=== PATIENT | female | born 1975 | race Caucasian/White ===

== ENCOUNTER 2018-07-23 10:09 | Emergency (ER) | payer BC ==
[~2018-07-23] VITALS: Ht 167.6 cm; Wt 74.8 kg
[~2018-07-23 10:09] MED LIST: ACET325T9 PO; ALPR0.5T PO; CARV6.25 PO; CLON0.1T PO; CLON1PAT TD; LOSA100T2 PO; LOSA25TA PO; LOSA50TA86 PO; TRAZ-120 PO
--- NOTE | 2018-07-23 11:25 | RAD ---
EXAM: Right shoulder, 3 views; right elbow, 3 views. HISTORY: Pain. COMPARISON: None. FINDINGS: Right shoulder: 3 views of the right shoulder obtained. There is no fracture, dislocation or subluxation. Right elbow: 3 views of the right elbow are obtained. There is no fracture, dislocation or subluxation. There is no elbow effusion. IMPRESSION: No acute osseous finding. Electronically signed by: Christina Berg MD (07/23/2018 11:22 AM) [facility]
--- NOTE | 2018-07-23 12:45 | RAD ---
EXAM: Head CT without contrast. HISTORY: Upper extremity numbness. TECHNIQUE: Computed tomographic images of the head were obtained without contrast. *One or more of the following individualized dose reduction techniques were utilized for this examination: 1. Automated exposure control. 2. Adjustment of the mA and/or kV according to patient size. 3. Use of iterative reconstruction technique. COMPARISON: 10/03/2013. FINDINGS: There is no acute or subacute extra-axial or intraparenchymal hemorrhage. There is no mass effect or midline shift. There is no hydrocephalus. The ngo-white matter differentiation pattern is intact. There is minimal posterior left ethmoid sinus mucosal thickening. The mastoid air cells are clear. No calvarial lesion is seen. IMPRESSION: No acute intracranial findings. Note is made that MRI is more sensitive for acute infarction. Electronically signed by: Christina Berg MD (07/23/2018 12:42 PM) [facility]
[2018-07-23 13:52] VITALS: BP 121/83
--- NOTE | 2018-07-23 14:21 | RAD ---
Right upper extremity venous Doppler July 23, 2018 INDICATION: Right upper extremity weakness and numbness. COMPARISON: None available TECHNIQUE: Sonographic evaluation of the right upper extremity venous system was performed with grayscale and color Doppler. FINDINGS: Right IJ, right cephalic vein, axillary vein, basilic vein, brachial vein, radial and ulnar veins are patent and compressible with normal color Doppler. Right subclavian vein is normal with normal color Doppler. No hyper extremity venous thrombosis is identified. Left subclavian vein is patent. IMPRESSION: No evidence for right upper extremity deep venous thrombosis. Electronically signed by: Kim Henao MD (07/23/2018 2:18 PM) [facility]
[2018-07-23] MEDS ORDERED: predniSONE 10 MG TABLET PO ONE (14:40)
[2018-07-23] MEDS ORDERED: IBUPROFEN 600 MG TABLET. PO ONE (14:40)
[2018-07-23] MEDS ORDERED: METH4TAB2 PO (14:44)
[2018-07-23] MEDS ORDERED: IBUP600T16 PO (14:44)
--- NOTE | 2018-07-23 14:44 | PHYS DOC ---
Past History Past Medical History: Anxiety, Hypertension Past Surgical History: Hysterectomy Smoking: Non-smoker Alcohol Use: Occasionally Drug Use: Marijuana Adult General Chief Complaint Chief Complaint: UPPER EXTREMITY PAIN HPI HPI Patient is a 43 year old right-handed female who presents with complaining of right upper extremity numbness. Patient complaining of sudden onset of right upper extremity since yesterday at 1700 as a constant numbness with marked weakness not getting better with rest and movement. Patient denies headache, other focal neuro deficit, fever and chills, chest pain, shortness of breath, history of the same problem. Patient states she was admitted at [facility] about 1 month ago for uncontrolled hypertension but did not have IV line in right side. Review of Systems Review of Systems Constitutional: Denies fever or chills [] Eyes: Denies change in visual acuity, redness, or eye pain [] HENT: Denies nasal congestion or sore throat [] Respiratory: Denies cough or shortness of breath [] Cardiovascular: No additional information not addressed in HPI [] GI: Denies abdominal pain, nausea, vomiting, bloody stools or diarrhea [] : Denies dysuria or hematuria [] Musculoskeletal: Denies back pain or joint pain [] Integument: Denies rash or skin lesions [] Neurologic: Denies headache, focal weakness, reports sensory changes [] Endocrine: Denies polyuria or polydipsia [] All other systems were reviewed and found to be within normal limits, except as documented in this note. Current Medications Current Medications Current Medications Medications (Trade) Dose Ordered Sig/Rina Start Time Stop Time Status Last Admin Dose Admin Ibuprofen (Motrin) 600 mg 1X ONCE 07/23/18 14:40 07/23/18 14:41 DC 07/23/18 14:18 600 MG Prednisone (Prednisone) 50 mg 1X ONCE 07/23/18 14:40 07/23/18 14:41 DC 07/23/18 14:18 50 MG Allergies Allergies Allergies Coded Allergies Type Severity Reaction Last Updated Verified No Known Drug Allergies 10/03/13 No Physical Exam Physical Exam Constitutional: Well developed, well nourished, mild distress, non-toxic appearance. [] HENT: Normocephalic, atraumatic. Eyes: PERRLA, EOMI, conjunctiva normal, no discharge. [] Neck: Normal range of motion, no tenderness, supple, no stridor. [] Cardiovascular:Heart rate regular rhythm, no murmur [] Lungs & Thorax: Bilateral breath sounds clear to auscultation [] Extremities: No tenderness, no cyanosis, no clubbing, ROM intact, no edema. [] Neurologic: Alert and oriented X 3, normal motor function, normal sensory function, no sensory or motor weakness in right upper extremity, no edema or deformity, no focal deficits noted. [] Psychologic: Affect normal, judgement normal, mood normal. [] Current Patient Data Vital Signs Vital Signs Date Time Temp Pulse Resp B/P (MAP) Pulse Ox O2 Delivery O2 Flow Rate FiO2 07/23/18 13:52 69 18 121/83 (96) 99 Room Air 07/23/18 10:57 98.0 EKG EKG [] Radiology/Procedures Radiology/[place] [address] IMAGING REPORT Signed PATIENT: RAMÓN HELLER ACCOUNT: [id number] : 1975 LOCATION: ER AGE: 43 SEX: F EXAM STATUS: REG ER ORD. PHYSICIAN: DEB PEDROZA MD REASON: right upper extremity numbness PROCEDURE: CT HEAD WO CONTRAST EXAM: Head CT without contrast. HISTORY: Upper extremity numbness. TECHNIQUE: Computed tomographic images of the head were obtained without contrast. *One or more of the following individualized dose reduction techniques were utilized for this examination: 1. Automated exposure control. 2. Adjustment of the mA and/or kV according to patient size. 3. Use of iterative reconstruction technique. COMPARISON: 10/03/2013. FINDINGS: There is no acute or subacute extra-axial or intraparenchymal hemorrhage. There is no mass effect or midline shift. There is no hydrocephalus. The ngo-white matter differentiation pattern is intact. There is minimal posterior left ethmoid sinus mucosal thickening. The mastoid air cells are clear. No calvarial lesion is seen. IMPRESSION: No acute intracranial findings. Note is made that MRI is more sensitive for acute infarction. Electronically signed by: Christina Arriola MD (07/23/2018 12:42 PM) [place] [id number] DICTATED AND SIGNED BY: CHRISTINA ARRIOLA MD DATE: 07/23/18 1242 CC: DEB PEDROZA MD; CHERYL BLAIR ~ [address] [address] IMAGING REPORT Signed PATIENT: RAMÓN HELLER ACCOUNT: [id number] : 1975 LOCATION: ER AGE: 43 SEX: F EXAM STATUS: REG ER ORD. PHYSICIAN: DEB PEDROZA MD REASON: right upper extremity numbness and weakness PROCEDURE: VENOUS UPPER EXTREMITY RIGHT Right upper extremity venous Doppler July 23, 2018 INDICATION: Right upper extremity weakness and numbness. COMPARISON: None available TECHNIQUE: Sonographic evaluation of the right upper extremity venous system was performed with grayscale and color Doppler. FINDINGS: Right IJ, right cephalic vein, axillary vein, basilic vein, brachial vein, radial and ulnar veins are patent and compressible with normal color Doppler. Right subclavian vein is normal with normal color Doppler. No hyper extremity venous thrombosis is identified. Left subclavian vein is patent. IMPRESSION: No evidence for right upper extremity deep venous thrombosis. Electronically signed by: Gene Dunaway MD (07/23/2018 2:18 PM) [id number] DICTATED AND SIGNED BY: GENE DUNAWAY MD DATE: 07/23/18 8455 CC: DEB PEDROZA MD; CHERYL BLAIR ~ [address] [address] IMAGING REPORT Signed PATIENT: RAMÓN HELLER ACCOUNT: [id number] : 1975 LOCATION: ER AGE: 43 SEX: F EXAM STATUS: REG ER ORD. PHYSICIAN: DEB PEDROZA MD REASON: PAIN PROCEDURE: ELBOW RIGHT 3V EXAM: Right shoulder, 3 views; right elbow, 3 views. HISTORY: Pain. COMPARISON: None. FINDINGS: Right shoulder: 3 views of the right shoulder obtained. There is no fracture, dislocation or subluxation. Right elbow: 3 views of the right elbow are obtained. There is no fracture, dislocation or subluxation. There is no elbow effusion. IMPRESSION: No acute osseous finding. Electronically signed by: Christina Arriola MD (07/23/2018 11:22 AM) [facility] DICTATED AND SIGNED BY: CHRISTINA ARRIOLA MD DATE: 07/23/18 1122 CC: DEB PEDROZA MD; CHERYL BLAIR ~ Course & Med Decision Making Course & Med Decision Making Pertinent Imaging studies reviewed. (See chart for details) Evaluation of patient in ER showed 43-year-old female patient with history of anxiety with complaining of right upper extremity subjective paresthesia. Patient did not have persisted exam. X-ray and venous Doppler ultrasound of right upper extremity and CT head was unremarkable. discharge: I've spoken with the patient and/or caregivers. I've explained the patient's condition, diagnosis and treatment plan based on information available to me at this time. I've answered the patient's and/or caregivers questions and addressed any concerns. The patient and/or caregivers have a good understanding the patient's diagnosis, condition and treatment plan as can be expected at this point. Vital signs have been stabilized. The patient's condition is stable for discharge from the emergency department. The patient will pursue further outpatient evaluation with her primary care provider or other designated consulting physician as outlined in the discharge instructions. Patient and/or caregivers are agreeable to this plan of care and follow-up instructions have been explained in detail. The patient and/or caregivers have received these instructions in written format and expressed understanding of these discharge instructions. The patient and her caregivers are aware that if any significant change in condition or worsening of symptoms should prompt him to immediately return to this of the closest emergency department. If an emergent department is not readily available I would encourage him to call 911. Dragon Disclaimer Dragon Disclaimer This electronic medical record was generated, in whole or in part, using a voice recognition dictation system. Departure Departure: Impression: Primary Impression: Left upper extremity numbness Disposition: HOME, SELF-CARE (at 1442) Condition: STABLE Referrals: CHERYL BLAIR (PCP) Patient Instructions: Paresthesia Additional Instructions: Drink plenty of liquids Follow-up with your primary care physician in 3-5 days Return to ER if not getting better Scripts Methylprednisolone (MEDROL) 4 Mg Tab.ds.pk 1 PKG PO UD for inflammation, #1 PKG Prov: DEB PEDROZA MD 07/23/18 Ibuprofen (IBUPROFEN) 600 Mg Tablet 600 MG PO TID for pain, #20 TAB Prov: DEB PEDROZA MD 07/23/18 DEB PEDROZA MD Jul 23, 2018 14:44
--- NOTE | 2018-08-02 08:11 | RAD ---
EXAM: Right shoulder, 3 views; right elbow, 3 views. HISTORY: Pain. COMPARISON: None. FINDINGS: Right shoulder: 3 views of the right shoulder obtained. There is no fracture, dislocation or subluxation. Right elbow: 3 views of the right elbow are obtained. There is no fracture, dislocation or subluxation. There is no elbow effusion. IMPRESSION: No acute osseous finding. Electronically signed by: Christina Berg MD (07/23/2018 11:22 AM) [id number]
== END 2018-07-23 14:55 | disposition home or self-care (01) ==
LOC: ER 10:09
DX: R20.0 Anesthesia of skin (principal); M25.511 Pain in right shoulder; M25.521 Pain in right elbow; R51 Headache; R53.1 Weakness; F41.9 Anxiety disorder, unspecified; I10 Essential (primary) hypertension
CPT/HCPCS: 70450; 73030; 73080; 93971; 99284; J7512